=== PATIENT | female | born 1955 | race African-American/Black ===

== ENCOUNTER 2020-12-01 13:00 | Inpatient (IN) ==
[2020-12-01] MEDS ORDERED: FUROSEMIDE 100 MG/10 ML VIAL IV STA (14:39)
[2020-12-01] MEDS ORDERED: niCARdipine INJ 25 MG in SODIUM CHLORIDE 0.9% 240 ML IV PRN (14:40)
[2020-12-01] MEDS ORDERED: ALBUTEROL 2.5 MG/3 ML NEB RESP TX STA (14:40)
[2020-12-01 15:08] LABS: Basophils % 0.5 % (0.0-0.8); Eosinophils # 0.1 10*3/uL (0.0-0.87); Eosinophils % 1.3 % (0.00-10.9); Hematocrit 40.5 VOL% (35.7-47.0); Hemoglobin 13.2 GM/DL (12.0-16.0); Immature Granulocytes % 0.1 %; Immature Granulocytes Absolute 0.01 #; Lymphocytes # 1.1 10*3/uL (1.4-4.0); Mean Corpuscular HGB Conc 32.6 GM/DL (32-36); Mean Corpuscular Volume 97.8 FL (87-102); Mean Platelet Volume 10.6 FL (9.6-12.0); Monocytes % 4.7 % (1.7-12.7); Neutrophils % 79.4 % (38.7-73.9); Platelet Count 275 T/CUMM (130-400); Red Blood Count 4.14 MC/CUMM (3.8-5.5); Red Cell Distribution Width 14.2 % (9.3-17.3); White Blood Count 7.6 T/CUMM (4-12)
[2020-12-01 15:10] LABS: Bacteria,Urine Occasional /HPF (Few); Bilirubin,Urine Negative (Negative); Blood, Urine Small mg/dL (Negative); Glucose,Urine (UA) 50 mg/dL (Negative); Hyaline Casts,Urine 2 /LPF (0-3); Ketones,Urine Negative (Negative); Mucus,Urine Occasional /LPF (Occasional); Nitrite,Urine Negative (Negative); Protein,Urine 30 MG/DL; RBC,Urine 8 /HPF (0-4); Squamous Epithelial Cell,Urine Occasional /HPF (0-10); Urine Appearance CLEAR (Clear); Urine Color Yellow (Yellow); Urine Specific Gravity 1.013 (1.001-1.035); Urine Urobilinogen < 2.0 EU/DL (0.2-1.0); WBC,Urine 2 /HPF (0-6)
[2020-12-01] MEDS ORDERED: niCARdipine 25 MG/10 ML VIAL IV ONE (15:10)
[2020-12-01 15:18] LABS: INR 1.2; PT Patient Result 12.5 SECS (9.8-11.9); Partial Thromboplastin Time 30.1 SECS (23.9-33.8)
[2020-12-01 15:26] LABS: Barbiturates Screen,Urine Negative (Negative); Benzodiazepines Screen,Urine Negative (Negative); Cannabinoid Screen,Urine Negative (Negative); Opiate Screen,Urine Negative (Negative); Phencyclidine Screen,Urine Negative (Negative)
[2020-12-01 15:32] LABS: Albumin 3.1 G/DL (3.4-5.0); Bilirubin,Total 0.9 MG/DL (0.2-1.0); Osmolality,Calculated 293.8 MOS/KG (273-304); Potassium 3.6 MMOL/L (3.5-5.1); Total Protein 8.3 G/DL (6.4-8.3)
[2020-12-01] MEDS ORDERED: ALBUTEROL 2.5 MG/3 ML NEB RESP TX PRN (15:48)
[2020-12-01] MEDS ORDERED: NITROGLYCERIN 2% OINT 1 INCH/GM PACK TOP STA (16:23)
[2020-12-01] MEDS ORDERED: cloNIDine 0.1 MG TABLET PO STA (16:24)
[2020-12-01 16:44] LABS: Risk Ratio 2.13; VLDL CHOLESTEROL 21.2 MG/DL
[2020-12-01] MEDS ORDERED: DEXTROSE 50% 25 GM/50 ML VIAL IV PRN (17:02)
[2020-12-01] MEDS ORDERED: GLUCAGON 1 MG VIAL IM PRN (17:02)
[2020-12-01] MEDS: amLODIPine 10 MG TABLET PO SCH (17:11)
[2020-12-01] MEDS: cloNIDine 0.1 MG TABLET PO PRN (18:17)
[2020-12-01 20:06] VITALS: BP 171/104
[2020-12-01] MEDS: FUROSEMIDE 40 MG/4 ML VIAL IV SCH (20:07)
[2020-12-01] MEDS: INSULIN REGULAR 100 UNIT/ML SUBCUT SCH (20:07)
[2020-12-01] MEDS ORDERED: NITROGLYCERIN 2% OINT 1 INCH/GM PACK TOP SCH (22:00)
[2020-12-01] MEDS ORDERED: ACETAMINOPHEN 325 MG TABLET PO PRN (22:37)
[2020-12-01] MEDS ORDERED: POTASSIUM CHLORIDE 20 MEQ TABLET PO ONE (22:37)
[2020-12-01] MEDS ORDERED: MAGNESIUM SULF RIDER 2 GM in PREMIX 1 EACH IV PRN (22:40)
[2020-12-01] MEDS ORDERED: MAGNESIUM SULF RIDER 4 GM in PREMIX 1 EACH IV PRN (22:40)
[2020-12-01] MEDS ORDERED: POTASSIUM CHLORIDE 20 MEQ TABLET PO PRN (22:40)
[2020-12-02 05:08] LABS: Calcium 8.6 MG/DL (8.5-10.1); Osmolality,Calculated 287.7 MOS/KG (273-304); Potassium 4.2 MMOL/L (3.5-5.1)
[2020-12-02] MEDS: INSULIN REGULAR 100 UNIT/ML SUBCUT SCH ×4 (07:08→20:29)
[2020-12-02] MEDS: amLODIPine 10 MG TABLET PO SCH (08:32)
[2020-12-02] MEDS: FUROSEMIDE 40 MG/4 ML VIAL IV SCH ×2 (08:32→20:30)
[2020-12-02] MEDS: cloNIDine 0.1 MG TABLET PO PRN (13:35)
[2020-12-03 04:36] LABS: Basophils # 0.1 10*3/uL (0.0-0.2); Basophils % 0.6 % (0.0-0.8); Eosinophils # 0.2 10*3/uL (0.0-0.87); Eosinophils % 2.7 % (0.00-10.9); Hematocrit 42.1 VOL% (35.7-47.0); Immature Granulocytes % 0.3 %; Immature Granulocytes Absolute 0.02 #; Lymphocytes % 26.1 % (21.3-54.2); Mean Corpuscular HGB Conc 33.3 GM/DL (32-36); Mean Corpuscular Volume 94.8 FL (87-102); Mean Platelet Volume 10.6 FL (9.6-12.0); Monocytes % 6.3 % (1.7-12.7); Platelet Count 238 T/CUMM (130-400); Red Blood Count 4.44 MC/CUMM (3.8-5.5); Red Cell Distribution Width 13.5 % (9.3-17.3); White Blood Count 7.7 T/CUMM (4-12)
[2020-12-03 05:14] LABS: Albumin 2.7 G/DL (3.4-5.0); Bilirubin,Direct 0.4 MG/DL (0.0-0.20); Bilirubin,Indirect 1.4 MG/DL (0.0-1.0); Bilirubin,Total 1.8 MG/DL (0.2-1.0); Calcium 8.4 MG/DL (8.5-10.1); Potassium 3.6 MMOL/L (3.5-5.1); Total Protein 7.6 G/DL (6.4-8.3)
[2020-12-03] MEDS: FUROSEMIDE 40 MG/4 ML VIAL IV SCH (08:27)
[2020-12-03] MEDS: INSULIN REGULAR 100 UNIT/ML SUBCUT SCH (08:27)
[2020-12-03] MEDS: amLODIPine 10 MG TABLET PO SCH (08:28)
== END 2020-12-03 11:42 | disposition home or self-care (01) | DRG 291 ==
LOC: SUATTDRO → N.ED 13:00 → N.EDINP 15:49 → N.CC 18:57
PROVIDERS: ADMIT Internal Medicine; ATTEND Internal Medicine